=== PATIENT | male | born 1980 | race Caucasian/White ===

== ENCOUNTER 2022-04-05 22:26 | Emergency (ER) | payer BC, SELFPAY ==
[2022-04-05 22:27] VITALS: BP 183/108; PULSE 76; RESP 14; TEMP 36.2; O2SAT 97; BMI 38.0
[2022-04-05] MEDS: Tetracaine 0.5% Ophthalmic Bottle 1 DRP OPHTHALMIC (23:19)
[2022-04-05] MEDS: Fluorescein 1 MG STRIP 1 STRIP OPHTHALMIC (23:19)
--- NOTE | 2022-04-05 23:36 | EX.ED.VIS.EY ---
HPI History of Present Illness Chief Complaint: Eye Problem Informant: patient Onset/Context/Timing Location: Left Eye Onset: Today Timing: Continuous Worsened by: Nothing Relieved by: Nothing Associated Symptoms Associated Symptoms - Eyes: Drainage (Watery), Foreign body sensation and Redness; Negative for Burning, Crusting, Eyelid swelling, Itching, Matting, Pain and Photophobia History of injury: No Visual correction: Glasses and Corrective contact lenses Narrative Narrative: Present with possible foreign body to his left arm. Patient states he woke up and felt like there was something in his eye today. Patient admits to some watery drainage. Patient states nothing makes it better nothing makes it worse. Patient denies any visual changes. Patient denies any trauma or injury. Patient states he normally wears contacts but has been wearing his glasses today. Patient denies any redness. Patient denies any swelling of his eyelid. PFSH PFSH Home Medications No Known/Unobtainable [No Known Home Medications] 04/13/17 [History Last Taken Unknown] Allergy/AdvReac Type Severity Reaction Status Date / Time meperidine HCl [From Demerol] Allergy Nausea/Vom/ Verified 05/24/16 12:46 Diarrhea hydrocodone AdvReac Nausea/Vom/ Verified 04/13/17 14:22 Diarrhea oxycodone AdvReac Nausea/Vom/ Verified 04/13/17 14:22 Diarrhea Surgical History no surgical history no surgical history Social History Smoking Status: Current every day smoker tobacco type: cigarettes ROS ROS ED Constitutional Constitutional ED: Denies chills or fever(s) Eyes Eyes: Denies blurry vision or change in vision ENT ENT ED: Reports rhinorrhea; Denies sore throat Cardiovascular Cardiovascular: Denies chest pain or palpitations Respiratory/Chest Respiratory/Chest: Denies cough or dyspnea Gastrointestinal Gastrointestinal: Denies nausea or vomiting Genitourinary Genitourinary ED: Denies dysuria or hematuria Musculoskeletal Musculoskeletal: Denies back pain or neck pain Integumentary Denies abscess or rash Neurologic Neurologic: Denies headache(s) or weakness Allergic/Immunologic Allergic/Immunologic ED: Denies mouth swelling or urticaria EXAM Physical Exam Const Vital Signs: 04/05/22 22:27 Temperature 97.1 F L Temperature Source Temporal Pulse Rate 76 Respiratory Rate 14 Blood Pressure 183/108 H Blood Pressure Mean 133 Pulse Ox 97 Oxygen Delivery Method Room Air Positive well nourished, well developed and obese General Appearance ED: well developed and NAD Nutritional Appearance: obese HEENT atraumatic Eyes Alignment: alignment normal Periorbital: periorbital findings normal Eyelid: eyelids normal Conjunctiva: conjunctiva abnormal left Details: injection Positive for diffuse Sclera: sclera normal Cornea: cornea abnormal Positive for left Cornea - Left Eye: Positive for abrasion Details: Positive for central Pupil: PERRL and accommodation reflex normal EOM: Negative for EOM abnormal Slit Lamp: slit lamp exam performed with fluorescein, lids/lashes/lacrimal system normal appearing, conjunctiva/sclera diffuse conjunctiva injection, cornea linear corneal abrasion and anterior chamber normal appearing Neck supple and no JVD Neuro oriented x3, moves all extremities and no sensory deficits noted Sensorium / Orientation: alert MDM MDM MDM Narrative Medical decision making narrative: There is a central corneal abrasion of the left eye. Patient was given erythromycin ophthalmic ointment. Patient was instructed to apply thin strip of ointment to his left eye every 6 hours while awake. Patient was instructed to follow-up with his primary care physician in 2 to 3 days. Patient understood and was agreeable with the plan. All questions were answered. Discharge Plan Triage Chief Complaint: Eye Problem ED Provider: Linus Bullock Dx/Rx/DC Orders Clinical Impression: Corneal abrasion, left Instructions: ED Corneal Abrasion Prescriptions: No Action No Known Home Medications RF: 0 Primary Care Provider: Care Physician,No Primary Referrals: Billy Baker MD [STAFF PHYSICIAN] - 3-5 Days Care Physician,No Primary [Primary Care Provider] - Disposition Disposition: Home, Self Care
[2022-04-05 23:51] VITALS: PULSE 74; RESP 15; O2SAT 98
[2022-04-06] MEDS: Erythromycin Ophthalmic (NSY) 1 GM OPTH.TUBE 1 APPLIC RIGHT EYE (00:04)
== END 2022-04-06 00:05 | disposition home or self-care (01) ==
PROVIDERS: Emergency Provider Emergency Medicine; Visit Provider Emergency Medicine
DX: S05.02XA Injury of conjunctiva and corneal abrasion without foreign body, left eye, initial encounter (principal); F17.210 Nicotine dependence, cigarettes, uncomplicated; Z97.3 Presence of spectacles and contact lenses; E66.9 Obesity, unspecified; X58.XXXA Exposure to other specified factors, initial encounter
CPT/HCPCS: 99283

== ENCOUNTER 2022-05-01 02:50 | Emergency (ER) | payer BC, SELFPAY ==
[2022-05-01 02:50] VITALS: BP 165/99; PULSE 60; RESP 16; TEMP 36.1; O2SAT 98; BMI 37.8
--- NOTE | 2022-05-01 03:57 | EX.ED.VIS.EY ---
HPI History of Present Illness Chief Complaint: Eye Problem Narrative Narrative: Patient is a 42-year-old male who wears contacts. He states the brand of contacts he wears allows him to wear them for 1 month at a time and then change them. He states that yesterday he was out mowing the yard and doing normal maintenance and then later in the evening noticed some pain and irritation to his right eye. He denies any direct trauma and states he took his contact lens out but even with doing this has continued to get eye irritation pain and increased tearing. Secondary to this he presents for evaluation [facility] Medical History no medical history Home Medications ciprofloxacin HCl 0.3 % eye drops 2 drp RIGHT EYE 4X/DAY 5 days #10 mL 05/01/22 [Rx Last Taken Unknown] Allergy/AdvReac Type Severity Reaction Status Date / Time meperidine HCl [From Demerol] Allergy Nausea/Vom/ Verified 05/01/22 02:53 Diarrhea hydrocodone AdvReac Nausea/Vom/ Verified 05/01/22 02:53 Diarrhea oxycodone AdvReac Nausea/Vom/ Verified 05/01/22 02:53 Diarrhea Social History Smoking Status: Current every day smoker tobacco type: cigarettes ROS ROS ED Constitutional Constitutional ED: Denies chills or fever(s) Eyes Eyes: Reports other Details: Positive photophobia ; Denies blurry vision or change in vision ENT ENT ED: Denies sore throat Cardiovascular Cardiovascular: Denies chest pain Respiratory/Chest Respiratory/Chest: Denies cough or dyspnea Gastrointestinal Gastrointestinal: Denies abdominal pain, diarrhea, nausea or vomiting Genitourinary Genitourinary ED: Denies dysuria Musculoskeletal Musculoskeletal: Denies myalgias Integumentary Denies rash Neurologic Neurologic: Denies headache(s) Hematologic/Lymphatic Hematologic/Lymphatic: Denies easy bleeding or easy bruising EXAM Physical Exam Const Vital Signs: 05/01/22 02:50 Temperature 97 F L Temperature Source Temporal Pulse Rate 60 Respiratory Rate 16 Blood Pressure 165/99 H Blood Pressure Mean 121 Pulse Ox 98 Oxygen Delivery Method Room Air Positive well nourished and well developed General Appearance ED: well developed Eyes PERRL and EOMs intact bilaterally Eyes Narrative: There is scleral injection to the right eye with increased tearing. The upper lid was everted there is no foreign body. Patient has resolution of symptoms with tetracaine. Musa lamp exam shows a small corneal abrasion around the 12 to 1 o'clock position over top the iris. Negative Stephen sign. No retained foreign body noted. Neck supple Resp normal respiratory effort and clear to auscultation bilaterally Cardio regular rate and regular rhythm Extremity normal to inspection Neuro oriented x3 and CN's II-XII intact bilaterally Sensorium / Orientation: alert Psych mental status grossly normal Skin no rashes or lesions noted MDM MDM MDM Narrative Medical decision making narrative: Patient presented to the ER with report of right eye pain with no known trauma. His exam shows a small corneal abrasion without globe rupture or retained foreign body. As he does wear contacts he was started on Cipro ophthalmologic drops to prevent infection. However at this time as he does not have globe rupture changes in vision or retained foreign body there is no need for further work-up. He will be advised to keep his contacts out until he completes treatment of his antibiotic course but is otherwise safe for discharge. Discharge Plan Triage Chief Complaint: Eye Problem ED Provider: Dheeraj Alexis Dx/Rx/DC Orders Clinical Impression: Corneal abrasion of right eye due to contact lens Instructions: ED Corneal Abrasion Prescriptions: New ciprofloxacin HCl 0.3 % drops 2 drp RIGHT EYE 4X/DAY 5 Days Qty: 10 0RF Rx Instructions: administer while awake Primary Care Provider: Care Physician,No Primary Referrals: Jim Campoverde MD [STAFF PHYSICIAN] - 3-5 Days if not improving Care Physician,No Primary [Primary Care Provider] - Activity Restrictions/Additional Instructions: Please do not wear your contacts until you are finished with the antibiotic drop. Please return to the ER should you have any further concerns and/or follow-up with ophthalmology for repeat evaluation Disposition Disposition: Home, Self Care Discharge Date/Time: 05/01/22 04:14
[2022-05-01] MEDS: Ciprofloxacin 0.3% 2.5ml Bottle 2 DRP RIGHT EYE (04:11)
[2022-05-01] MEDS: Fluorescein 1 MG STRIP 1 STRIP RIGHT EYE (04:11)
[2022-05-01] MEDS: Tetracaine 0.5% Ophthalmic Bottle 1 DRP RIGHT EYE (04:12)
== END 2022-05-01 04:14 | disposition home or self-care (01) ==
PROVIDERS: Emergency Provider Emergency Medicine; Visit Provider Emergency Medicine
DX: S05.01XA Injury of conjunctiva and corneal abrasion without foreign body, right eye, initial encounter (principal); Z97.3 Presence of spectacles and contact lenses; F17.210 Nicotine dependence, cigarettes, uncomplicated
CPT/HCPCS: 99282